=== PATIENT | female | born 1990 | race African-American/Black ===

== ENCOUNTER 2018-09-22 11:36 | Emergency (ER) | payer OTHER ==
[~2018-09-22] VITALS: Ht 167.6 cm; Wt 99.8 kg
[~2018-09-22 11:36] MED LIST: CITRATE OF MAG296 ML PO; CLARINEX-D 241 EACH PO; FIORICET 50-321 EACH PO; FLONASE 0.05%50 MCG NASAL; IBUPROFEN 600600 M1 PO; IBUPROFEN 800800 M1 PO; IBUPROFEN 800800 MG PO; MACROBID 100 M100 M1 PO; NAPROSYN500 MG PO; NOHOMEMEDICATIONS; NORCO 5-325 TA1 EACH PO; TESSALON PERLE100 MG PO; VALIUM2 MG PO; ZOFRAN ODT4 MG PO
[2018-09-22 12:06] LABS: HEMATOCRIT 41.4 % (37.0-47.0); HEMOGLOBIN 14.2 gm/dL (12.0-15.0); MCH 28.7 pg (26.0-34.0); MCHC 34.2 g/dL (28.0-37.0); MCV 83.8 fL (80.0-100.0); PLATELET COUNT 231 thou/uL (150-400); RBC 4.94 mil/uL (4.20-5.00); RDW 13.4 % (10.5-14.5)
[2018-09-22 12:15] LABS: CALCIUM 9.2 mg/dL (8.5-10.1); CREATININE 1.1 mg/dL (0.6-1.0); POTASSIUM 3.6 mmol/L (3.5-5.1)
[2018-09-22 12:21] LABS: ALBUMIN 3.4 g/dL (3.4-5.0)
[2018-09-22 12:25] LABS: URINE BLOOD NEGATIVE (Negative); URINE CLARITY CLEAR; URINE COLOR YELLOW; URINE GLUCOSE-RANDOM* NEGATIVE (Negative); URINE KETONES TRACE (Negative); URINE LEUKOCYTES 1+ (Negative); URINE NITRITE NEGATIVE (Negative); URINE PROTEIN (DIPSTICK) TRACE (Negative)
[2018-09-22 12:26] LABS: ICTOTEST (BILI CONFIRMATORY) Negative (Negative); URINE BILIRUBIN NEGATIVE (Negative)
[2018-09-22 12:33] LABS: AMP/METHAMP Negative (Negative); BARBITURATES Negative (Negative); BENZODIAZEPINES Negative (Negative); COCAINE Negative (Negative); METHADONE Negative (Negative); OPIATES Negative (Negative); PCP Negative (Negative)
[2018-09-22 12:35] LABS: SQUAMOUS >10 Many /LPF (0-3)
[2018-09-22 12:36] LABS: BACTERIA 1-9 Few /HPF (None Seen); CASTS None Seen /LPF (None Seen); CRYSTALS None Seen /LPF (None Seen); URINE RBC 0-2 Rare /HPF (0-2); URINE WBC 0-5 Rare /HPF (0-5)
[2018-09-22 12:44] LABS: ABSOLUTE NEUTROPHILS 1.4 thou/uL (1.4-8.2); PLATELET ESTIMATE NORMAL
[2018-09-22 13:16] VITALS: BP 136/78
== END 2018-09-22 13:16 | disposition home or self-care (01) ==
LOC: ER 11:36
PROVIDERS: Emergency Medicine
DX: J06.9 Acute upper respiratory infection, unspecified (principal); R53.1 Weakness; R42 Dizziness and giddiness